=== PATIENT | male | born 2000 | race Caucasian/White ===

== ENCOUNTER 2025-03-26 18:18 | Emergency (ER) | payer SELFPAY ==
[2025-03-26 18:22] VITALS: BP 121/72
[2025-03-26] MEDS: ATIVAN 1 MG PO (19:48)
[2025-03-26 20:19] VITALS: BMI 19.0
--- NOTE | 2025-03-26 20:29 | ED.GENMED ---
History of Present Illness
General
Chief Complaint: Crisis Evaluation
Time Seen by Provider: 03/26/25 19:16
History of Present Illness
History of Present Illness:
24-year-old male presents to the emergency department for evaluation of increasing depression and hopelessness. He states he feels suicidal but does not have a plan. He admits to abusing Adderall and 'opiates', last use was yesterday. Denies
homicidal ideation or hallucinations. He is willing to sign himself in for 201
Review of Systems
Review of Systems
Allergies reviewed?: Yes
All Other Systems: ROS reviewed and negative except as documented in HPI and ROS
Phy Exam
Physical Exam
Physical Exam:
GEN: Well appearing, NAD, WDWN
HEENT: Oral mucosa moist, no scleral icterus
Cardiac: Regular rate
Lung: No respiratory distress, no tachypnea
MSK: No gross deformity or injuries
Skin: Good color, no pallor or jaundice, no rashes
Neuro: AO x3, moves all extremities freely
Psych: Calm, cooperative
Course
Orders/Labs/Results
Orders:
Orders
03/26/25 18:26
Crisis Consult Urgent
Reason for Consult: +SI
03/26/25 19:29
Lorazepam [Ativan] 1 mg PO NOW STA
03/26/25 20:57
BMP [Basic Metabolic Panel] Urgent
CBC/With Diff [Complete Blood Count/With Diff] Urgent
03/26/25 22:11
Fentanyl, Urine Urgent
Urine Drug Abuse Screen Urgent
Date Specimen was Collected: 03/26/25
Time Specimen was Collected: 20:50
03/26/25 22:28
observation [ED Special Safety Observation] ONCE
Observation level: Intermittent Observation
Abnormal Lab Results
03/26/25 03/26/25
20:57 22:11
RBC 4.61 L 10^6/uL
(4.70-6.10)
Hct 38.9 L %
(39.0-52.0)
Abs Immat Gran (auto) 0.1 H 10^3/uL
(0-0.05)
Absolute Monos (auto) 1.1 H 10^3/uL
(0.1-0.6)
Immature Gran % 1.3 H %
(0-0.5)
Monocytes % 10.3 H %
(1.7-9.3)
Carbon Dioxide 31 H mmol/L
(22-30)
Ur Amphetamines Screen Positive H
(Negative)
U Methamphetamines Scrn Positive H
(Negative)
U Benzodiazepines Scrn Positive H
(Negative)
U Marijuana (THC) Screen Positive H
(Negative)
03/26/25 20:57
03/26/25 20:57
Vital Signs
Initial and Last Documented VS:
Initial Vital Signs
Temp Pulse Resp BP Pulse Ox
98.2 F 76 18 121/72 98
03/26/25 18:22 03/26/25 18:22 03/26/25 18:22 03/26/25 18:22 03/26/25 18:22
Last Documented Vital Signs
Temp Pulse Resp BP Pulse Ox
98.2 F 75 14 130/81 100
03/26/25 18:22 03/26/25 23:15 03/26/25 23:15 03/26/25 23:15 03/26/25 23:15
MDM/Problems Addressed
MDM/Problems Addressed:
Patient seen by crisis, will sign himself in for voluntary admission, bed search ongoing
*Pulse Oximetry
SaO2: 98
Oxygen Mode of Delivery: Room air
Patient hypoxic: no
*Critical Care Note
Total Time (30-74mins, 75-104mins- exclusive of procedures): Not Applicable
ED Attending Note
-
Portions of this chart may have been created with voice recognition software.� Occasional wrong word or��sound alike� substitutions may have occurred due to the inherent limitations of voice recognition software.
Discharge Plan
Departure
Patient Disposition: Psych Facility
Date of Disposition: 03/26/25
Time of Disposition: 20:29
Discharge Problem:
Depression with suicidal ideation
Prescriptions:
No Action
clonidine HCl 0.1 mg Tablet
0.1 mg PO TID PRN (Reason: anxiety)
mirtazapine [Remeron] 15 mg Tablet
7.5 mg PO HS
gabapentin 100 mg Capsule
200 mg PO BID
Interventions
Interventions:
*Risk Screen - Suicide Last Done: 03/26/25 18:22
*General Assessment Last Done: 03/26/25 18:22
*Neglect/Abuse Screening Last Done: 03/26/25 20:19
*ED- Fall Risk Assessment Last Done: 03/26/25 20:19
*ED COVID-19 Vaccine History Last Done: 03/26/25 20:19
ED-Psychological Assessment Last Done: 03/26/25 23:15
Discharge Date and Time
Print Language: VIET[place]ESE
[2025-03-26 21:10] LABS: Hematocrit 38.9 % (39.0-52.0); Hemoglobin 13.0 g/dL (13.0-18.0); Mean Corp Hgb Conc. 33.4 g/dL (33.0-37.0); Mean Corpuscular Volume 84.4 fL (80.0-94.0); Nucleated Red Blood Cells % 0 % (-); Platelet Count 337 10^3/uL (130-400); Red Cell Dist. Width 13.3 % (11.5-14.5)
[2025-03-26 21:50] LABS: Blood Urea Nitrogen 13 mg/dl (9-20); Calcium 9.2 mg/dl (8.4-10.2); Carbon Dioxide 31 mmol/L (22-30); Chloride 102 mmol/L (98-107); Estimated Creatinine Clearance > 125 ml/min; Glucose 99 mg/dl (70-99); Potassium 3.8 mmol/L (3.5-5.1); Sodium 137 mmol/L (135-145); eGFR > 60.00
[2025-03-26 23:15] VITALS: BP 130/81
[2025-03-27 08:57] VITALS: BP 131/79
[2025-03-27] MEDS: ATIVAN 1 MG PO (10:35)
--- NOTE | 2025-03-27 14:19 | ED.CRISIS ---
ED Crisis Note
ED Crisis Note
Subjective:
24-year-old male here with depression and suicidality without specific plan.
Objective:
Awake and alert, resting comfortably not in any distress.
Assessment/Plan:
Patient here pending voluntary placement for suicidality. He did have some anxiety today that was treated with Ativan. Crisis assessed patient and patient was accepted for inpatient psychiatric treatment at [facility]. His girlfriend is willing to
drive him directly there to facilitate placement�patient and girlfriend feel comfortable with this. Will discharge into her care for direct transport to inpatient psych facility.
== END 2025-03-27 14:26 | disposition home or self-care (01) ==
LOC: EMR 18:18
PROVIDERS: Physician Assistant; EMERGENCY PHYSICIAN Emergency Medicine; FAMILY PHYSICIAN Student in an Organized Health Care Education/Training Program
DX: F32.A Depression, unspecified (principal); R45.851 Suicidal ideations
CPT/HCPCS: 99285; 80048; 80306; 80307; 85025